=== PATIENT | female | born 1965 | race Caucasian/White ===

== ENCOUNTER 2016-06-05 20:40 | Emergency (ER) | payer SELFPAY ==
[~2016-06-05] VITALS: Ht 157.5 cm; Wt 78.6 kg
[~2016-06-05 20:40] MED LIST: ASPI-650 PO; CYCL-259 PO; LEVO25TA4 PO; LOSA1TAB17 PO
[2016-06-05] MEDS ORDERED: SODIUM CHLORIDE 0.9% 1,000 ML IV ONE (20:48)
[2016-06-05] MEDS ORDERED: HYDROmorphone 1 MG/ML, 1ML IVPush PRN (21:00)
[2016-06-05] MEDS ORDERED: ONDANSETRON 2MG/ML, 2ML IVPush ONE (21:00)
[2016-06-05] MEDS ORDERED: SODIUM CHLORIDE FLUSH 10ML SYR IVF ONE (21:00)
[2016-06-05] MEDS ORDERED: HYDROmorphone 1 MG/ML, 1ML ONE (21:19)
[2016-06-05] MEDS ORDERED: ONDANSETRON 2MG/ML, 2ML ONE (21:20)
[2016-06-05] MEDS ORDERED: METF500T4 PO (21:29)
[2016-06-05 21:41] LABS: IS PT STATUS REG ER OR PRE ER? YES
[2016-06-05 21:52] LABS: ASPARTATE AMINO TRANSFERASE 26 U/L (15-37); BLOOD UREA NITROGEN 10 mg/dL (7-18)
[2016-06-05 23:00] VITALS: BP 148/87
== END 2016-06-06 00:52 ==
LOC: ED 22:12
DX: R10.11 Right upper quadrant pain (principal)
CPT/HCPCS: 36415; 71010; 74020; 74176; 80053; 81001; 83690; 84484; 85025; 87086; 93005; 96361; 96374; 96375; 99285; J1170; J2405; J7030

== ENCOUNTER 2017-05-21 17:56 | Emergency (ER) | payer SELFPAY ==
[~2017-05-21] VITALS: Ht 157.5 cm; Wt 85.0 kg
[~2017-05-21 17:56] MED LIST changes: -LOSA1TAB17 PO; +LOSA1TAB22 PO; +METF500T4 PO
[2017-05-21] MEDS ORDERED: LOSA100T6 PO (18:42)
[2017-05-21] MEDS ORDERED: METHOCARBAMOL 750 MG TABLET ONE (19:28)
[2017-05-21] MEDS ORDERED: OXYcodone/APAP 5/325MG TABLET ONE (19:28)
[2017-05-21] MEDS ORDERED: KETOROLAC 30 MG/1 ML ONE (19:29)
[2017-05-21] MEDS ORDERED: KETOROLAC 30 MG/1 ML IM ONE (19:30)
[2017-05-21] MEDS ORDERED: OXYcodone/APAP 5/325MG TABLET PO ONE (19:30)
[2017-05-21] MEDS ORDERED: METHOCARBAMOL 750 MG TABLET PO ONE (19:30)
[2017-05-21 21:12] VITALS: BP 135/71
== END 2017-05-21 21:13 | disposition home or self-care (01) ==
LOC: ED 21:00
DX: S39.012A Strain of muscle, fascia and tendon of lower back, initial encounter (principal); S29.012A Strain of muscle and tendon of back wall of thorax, initial encounter; I10 Essential (primary) hypertension; E11.9 Type 2 diabetes mellitus without complications; E78.5 Hyperlipidemia, unspecified; W01.0XXA Fall on same level from slipping, tripping and stumbling without subsequent striking against object, initial encounter; Y93.89 Activity, other specified; Y92.512 Supermarket, store or market as the place of occurrence of the external cause; Y99.8 Other external cause status
CPT/HCPCS: 72072; 72110; 72125; 82962; 96372; 99284; J1885

== ENCOUNTER 2020-04-16 18:50 | Emergency (ER) | payer OTHER ==
[~2020-04-16] VITALS: Ht 157.5 cm; Wt 81.0 kg
[~2020-04-16 18:50] MED LIST changes: -ASPI-650 PO; +ASPI325T20 PO; -CYCL-259 PO; +CYCL10TA2 PO; +LOSA100T14 PO; +METF500T17 PO; -METF500T4 PO
--- NOTE | 2020-04-16 19:21 | NUR ---
RN to bedside with Dr. Hameed who translated for patient initial assessment. guarding on RLQ. patient agreed to IV, meds and labs. she acknowledges NPO status. will continue to monitor
[2020-04-16] MEDS ORDERED: ONDANSETRON 2MG/ML, 2ML ONE (19:27)
[2020-04-16] MEDS ORDERED: HYDROmorphone 1 MG/ML, 1ML INJ ONE (19:27)
[2020-04-16] MEDS ORDERED: SODIUM CHLORIDE FLUSH 10ML SYR IVF ONE (19:30)
[2020-04-16] MEDS ORDERED: HYDROmorphone 2 MG/ML, 1ML IVPush PRN (19:30)
[2020-04-16] MEDS ORDERED: SODIUM CHLORIDE 0.9% 1,000ML IVBOLUS ONE (19:30)
[2020-04-16] MEDS ORDERED: ONDANSETRON 2MG/ML, 2ML IVPush ONE (19:30)
[2020-04-16 19:40] LABS: BASOPHILS % (AUTO) 1 % (0-1); EOSINOPHILS % (AUTO) 1 % (1-7); LYMPHOCYTES % (AUTO) 47 % (22-44); MEAN CORPUSCULAR HEMOGLOBIN 31.9 pg (27.0-34.8); MEAN CORPUSCULAR HGB CONC 34.1 g/dL (32.4-35.8); MEAN PLATELET VOLUME 7.7 fL (7.4-10.4); MONOCYTES % (AUTO) 7 % (2-9); NEUTROPHILS % (AUTO) 43 % (42-75); PLATELET COUNT 207 x10^3/uL (130-400); RED BLOOD COUNT 4.62 x10^6/uL (3.82-5.3); RED CELL DISTRIBUTION WIDTH 13.5 % (9.6-15.2)
[2020-04-16 19:41] LABS: MD NO
[2020-04-16 19:48] LABS: ALANINE AMINOTRANSFERASE 37 U/L (12-78); ALBUMIN 3.5 g/dL (3.4-5.0); ANION GAP 9 mmol/L (5-15); CALCIUM 8.6 mg/dL (8.5-10.1); CHLORIDE 104 mmol/L (98-107); CREATININE 0.66 mg/dL (0.55-1.02)
[2020-04-16 19:50] LABS: ALKALINE PHOSPHATASE 127 U/L (45-117); BILIRUBIN,TOTAL 0.5 mg/dL (0.2-1.0); TOTAL PROTEIN 7.5 g/dL (6.4-8.2)
--- NOTE | 2020-04-16 20:02 | NUR ---
PATIENT AMBULATED TO BATHROOM WITH STEADY GAIT. IN NAD. CALL KINGSLEY IN REACH. PATIENT O2 SATURATION 90-96% ON RA. PATIENT SEEMED TO BE HOLDING BREATH DURING IV INSERTION. WHEN LEAVING ROOM AFTER IV INSERTION,PATIENT 96% ON RA. PATIENT FOUND TO BE 79% RESTING IN BED WITH EYES CLOSED AFTER MEDICATION ADMIN. PLACED ON 3L VIA NC WITH INCREASED TO 94% O2 SAT. WILL CONTINUE TO MONITOR. PATIENT NOTIFIED THIS RN THAT SHE DOES SPEAK SOME [place]. ABLE TO UNDERSTAND SMALL CUES AT THIS TIME. AT BEDSIDE
[2020-04-16 20:04] LABS: MICROSCOPIC INDICATED
[2020-04-16] MEDS ORDERED: BACL5TAB PO (20:08)
[2020-04-16] MEDS ORDERED: LOSA1TAB22 PO (20:08)
[2020-04-16] MEDS ORDERED: IBUP-1223 PO (20:08)
--- NOTE | 2020-04-16 20:41 | NUR ---
PATIENT REPORTS PAIN IS BETTER. BEING TRANSFERRED TO CT AT THIS TIME
[2020-04-16] MEDS ORDERED: OMNIPAQUE 350 MG/ML, 100ML BOTTLE ONE (20:52)
[2020-04-16] MEDS ORDERED: PROCHLORPERAZINE 5 MG/ML, 2ML IVPush ONE (21:30)
[2020-04-16] MEDS ORDERED: PROCHLORPERAZINE 5 MG/ML, 2ML ONE (21:33)
--- NOTE | 2020-04-16 21:52 | NUR ---
PATIENT REPORTS PAIN IS VERY LITTLE AT THIS TIME BUT PATIENT DRY HEAVING INTERMITTENTLY. DR. ARRINGTON NOTIFIED AND COMPAZINE ORDERED AND ADMINISTERED. CALL KINGSLEY IN REACH. SAFETY MAINTAINED. VS REMAIN STABLE ON 3L VIA NC
--- NOTE | 2020-04-16 21:56 | NUR ---
PATIENT TITRATED DOWN IN SUPPLEMENTAL O2. TOLERATING 2L VIA NC AT THIS TIME AT 95%. TITRATED DOWN TO 1L VIA NC AT THIS TIME. WILL CONTINUE TO MONITOR
--- NOTE | 2020-04-16 22:20 | NUR ---
PATIENT DOWN IN US AT THIS TIME
--- NOTE | 2020-04-16 23:01 | NUR ---
PATIENT RETURNED FROM US. TITRATED PATIENT TO RA SHE WAS 96% ON 1L VIA NC. PATIENT DID NOT TOLERATE THIS WELL. ASYMPTOMATIC 88% ON RA. PLACED BACK ON 1L VIA NC. CALL KINGSLEY IN REACH. PATIENT AWARE WE ARE WAITING FOR US RESULT. DENIES PAIN AND NAUSEA AT THIS TIME
--- NOTE | 2020-04-17 | NUR ---
PATIENT RESTING IN BED IN NAD. MULTIPLE ATTEMPTS TO GET PATIENT OFF OF SUPPLEMENTAL O2 BUT UNABLE TO. CALL [facility] IN REACH. SAFETY MAINTAINED. WILL ALLOW PATIENT TO METABOLIZE DILAUDID AND COMPAZINE WITH MORE TIME MONITORING. CONTINUE TO MONITOR.
--- NOTE | 2020-04-17 00:55 | NUR ---
AMBULATED PATIENT IN HALLWAY. O2 SATURATION ON RA STARTED AT 89-90% AND DROPPED TO 83% DURING AMBULATION. PATIENT HAS NO SYMPTOMS OF THIS. DENIES CP/SOB. WHEN RETURNING TO BED, PATIENT 82%. PLACED ON WALL MONITOR AND 85%; PLACED ON 0.5L VIA NC AND DR. ARRINGTON NOTIFIED.
--- NOTE | 2020-04-17 01:13 | NUR ---
DR. ARRINGTON AT BEDSIDE NOTIFYING PATIENT OF PLAN OF CARE DUE TO HYPOXIA ON RA AND DURING AMBULATION.
--- NOTE | 2020-04-17 01:49 | NUR ---
DISCHARGE INSTRUCTIONS REVIEWED WITH PATIENT AND PATIENT'S USING ANA MARIA, COLORIST FORMULATOR, HARRIET #[id number]. NO FURTHER QUESTIONS AT THIS TIME. PATIENT ACKNOWLEDGES EDUCATION, RISKS AND BENEFITS OF OPIOID MEDICATION SHE IS BEING PRESCRIBED. ALL PERSONAL BELONGINGS WITH PATIENT ON DC. IV REMOVED PER DC PROTOCOL. STEADY GAIT TO LOBBY. PATIENT REMAINS TO HAVE LOW OXYGEN SATURATION LEVELS. DURING DISCHARGE REVIEW, PATIENT O2 SATURATION INCREASED TO 94% BUT LOW 88% AT TIMES WITH GOOD PLETH AND WAVE FORM. DR. COTA AWARE AND WE DID GET CXR THAT DR. COTA REVIEWED BEFORE APPROVING HER DISCHARGE. PATIENT HAS NO SYMPTOMS OF THIS HYPOXIA AND INSTRUCTED BY RN TO BE COGNIZANT TO TAKE DEEP BREATHS AT HOME.
[2020-04-17 01:54] VITALS: BP 96/55
== END 2020-04-17 01:56 | disposition home or self-care (01) ==
LOC: ED 21:01
DX: R10.31 Right lower quadrant pain (principal); R11.0 Nausea; R63.0 Anorexia; I10 Essential (primary) hypertension; E11.9 Type 2 diabetes mellitus without complications; Z90.49 Acquired absence of other specified parts of digestive tract; Z90.710 Acquired absence of both cervix and uterus; Z86.39 Personal history of other endocrine, nutritional and metabolic disease; Z68.32 Body mass index [BMI] 32.0-32.9, adult
CPT/HCPCS: 36415; 71045; 74177; 76830; 80053; 81001; 83690; 85025; 96361; 96374; 96375; 99285; J0780; J1170; J2405; J7030; Q9967